=== PATIENT | male | born 1990 | race Caucasian/White ===

== ENCOUNTER 2017-12-13 20:24 | Emergency (ER) | payer SELFPAY ==
[2017-12-13 20:31] VITALS: TEMP 98.1
[2017-12-13] MEDS ORDERED: NS 1,000 ML IV ONE (20:31)
--- NOTE | 2017-12-13 20:39 | EDPHY ---
General - History Smoking Status: Light smoker Narrative: CHIEF COMPLAINT: Seizure HISTORY OF PRESENT ILLNESS: Patient presents by EMS and is seen at time of arrival. Complaint is seizure activity. The patient has no recollection of events. He remembers being at work but does not remember anything after that. He says that he is anxious and a little confused at this time. He knows where he is and what year it is. He knows his spouse is waiting for him. EMS reports that his coworkers described a brief episode of generalized tonic-clonic seizure activity. No loss of bowel or bladder. Does have complaint of mild pain to the tongue. He has no headache. No neck pain or stiffness. No fever or illness. No chest pain or shortness of breath. He has had previous seizures. Reports 1st seizure 2-3 years ago, and has seizures approximately every 2-3 months. Known trigger. He has been evaluated twice in the past. No imaging. No neurology follow-up. No medications. No alcohol abuse. No benzodiazepine use or abuse No other associated complaints or modifying factors. REVIEW OF SYSTEMS: Ten systems reviewed and are negative unless otherwise noted in the HPI PCP: None SPECIALISTS: None PAST MEDICAL HISTORY: Seizures PAST SURGICAL HISTORY: None SOCIAL HISTORY: Daily smoker. Occasional alcohol use. No drug use. Works at a [employer] store. Originally from [place]. FAMILY HISTORY: Noncontributory EXAMINATION General Appearance: Alert, no distress, diaphoretic and anxious. Head: normocephalic, atraumatic Eyes: Pupils equal and round, no conjunctival pallor or injection. EOMs intact..No vertical nystagmus. Or dysconjugate gaze ENT, Mouth: Mucous membranes moist Neck: Normal inspection, supple, non-tender Respiratory: Lungs are clear to auscultation Cardiovascular: Tachycardic rate. Regular rhythm. No murmur. Gastrointestinal: Abdomen is soft and nontender Back: non-tender, no bony abnormalities Neurological: GCS 15. Cranial nerves 2-12 grossly intact. Mild resting tremor. Alert to person, place and time. Disoriented to details of the event. nonfocal, strength is 5/5 in all 4 limbs. There is no pronator drift. Normal [id number]. Skin: Diaphoretic. Grossly intact. No petechiae or purpura. Extremities: Nontender, no pedal edema. Symmetric range of motion Psychiatric: Mood and affect normal DIFFERENTIAL DIAGNOSES: Including but not limited to unprovoked seizure, status epilepticus, provoked seizure, dehydration MDM: 8:30 p.m. Reported seizure activity that was witnessed. This described as generalized tonic-clonic activity. He is postictal but in no acute distress. No evidence of status epilepticus. No evidence of alcohol use or abuse or withdrawal. No evidence of benzodiazepine use or withdrawal. Vital signs within normal limits with mild tachycardia that is improving. He has had 2 previous workups in the past, neither of which included a CT scan of the head. He has never had an MRI of the head. He is not on any medications for seizure prevention. Laboratory studies ordered. CT scan of the head ordered. He is in no acute distress. 9:10 p.m. Patient evaluated. There has been more information provided since my previous HPI. His spouse is at bedside and has told Dr. Alvarez and the RN that the spouse has had only 1 seizure several months ago. Additionally, the patient is now being more forthcoming with his alcohol intake. He says he drinks approximately a handle of liquor every 3 days and he has had less over the past 2 days. He is mildly tremulous. He is in no acute distress. He has exhibited no other seizure activity here. No vomiting. We discussed Ativan and discharged home. 9:25 p.m. Patient re-evaluated. He is discussed with the spouse and he is in agreement with the plan. He will be discharged home stable condition with instructions to contact the on-call primary care physician as provided in the on-call neurologist of provided. He is instructed to not mix Ativan alcohol but also to not to stop drinking cold turkey. He would like to continue his drinking and wean under the supervision of his primary care physician that he will establish with. We discussed outpatient resources. We discussed driving restrictions. We discussed ED precautions. He is comfortable this plan. He is discharged home stable condition SUPERVISION: Patient was evaluated and examined in conjunction with my secondary supervising physician as documented. We have both examined the patient. (Jacky Farooq) Medical Decision Making: PHYSICIAN DOCUMENTATION: The patient was evaluated and managed by the Physician [employer] and myself. I have reviewed the chart and agree with the findings and plan of care as documented. In addition, I examined the patient myself at 2034. History confirmed as the patient had a shaking episode which sounds like a seizure today by EMS. On interview with the patient's he said he had possibly 3 months ago on a flight from [facility] to [facility] but he was released after being evaluated by paramedics at the airport. Physical findings as follows: Anterior tongue abrasion, now alert but has some short-term memory issues. CT imaging discussed and consented. Labs to include CBC and chemistry. Patient is rapidly returning to normal mental status per his . 2147: ambulatory, not ataxic, normal gait. I am the secondary supervising physician. (Fei Alvarez) - Objective Vital Signs: Initial Vital Signs Temperature (C) 98.1 F 12/13/17 20:27 Heart Rate 109 H 12/13/17 20:27 Respiratory Rate 20 12/13/17 20:27 Blood Pressure 145/94 H 12/13/17 20:27 O2 Sat (%) 93 12/13/17 20:27 O2 Delivery Mode Room Air Allergies/Adverse Reactions: Sulfa (Sulfonamide Antibiotics) Allergy (Verified 12/13/17 20:27) Laboratory Results: Laboratory Results 12/13/17 20:40 12/13/17 20:40 Medications Given: Discontinued Medications Sodium Chloride (Ns) 1,000 mls @ 0 mls/hr IV EDNOW ONE; Wide Open PRN Reason: Protocol Stop: 12/13/17 20:32 Last Admin: 12/13/17 20:40 Dose: 1,000 mls Lorazepam (Ativan Injection) 1 mg IVP EDNOW ONE Stop: 12/13/17 21:20 Last Admin: 12/13/17 21:25 Dose: 1 mg Departure - Departure Disposition: Home, Routine, Self-Care Clinical Impression: Seizure Condition: Good Instructions: Abuse of Alcohol (ED), At-Risk Alcohol Use (ED), New-Onset Seizure in Adults (ED), Driving Restrictions (ED) Additional Instructions: NO driving until cleared by followup neurologist. Referrals: Carlos Eduardo Loera MD [Medical Doctor] - 5-7 days, call for appt. Foster Mueller MD [Medical Doctor] - As per Instructions
[2017-12-13 20:50] LABS: PLATELET COUNT 156 10^3/uL (150-400)
[2017-12-13] MEDS ORDERED: LORazepam 2 MG/ML INJ IVP ONE (21:19)
[2017-12-13 21:31] VITALS: BP 128/74; PULSE 87; RESP 21; O2SAT 92
--- NOTE | 2017-12-14 13:08 | ASDISCHSUM ---
Discharge Information Plan Status:Home with No Needs Medically Cleared to Leave: Discharge Date:12/13/2017 09:49 PM CM D/C Disposition:Home, Routine, Self-Care ADT D/C Disposition:Home, Routine, Self-Care Projected Discharge Date:12/13/2017 09:49 PM Transportation at D/C:None or Unknown Discharge Delay Reason: Follow-Up Date:12/13/2017 09:49 PM Discharge Slot: Final Diagnosis: Placement Information Patient Contact Information Contact Name:MARY Relationship: Address: Work Phone: City: [facility] Phone: State/Zip Code: Email: Financial Information Financial Class:Self-Pay Primary Plan Desc:SELF PAY Primary Plan Number: Secondary Plan Desc: Secondary Plan Number: Assessment Information [facility] CM Progress Note CM Note CM Note Notes: Requested to follow up with patient re: getting a PCP and Neurology appt. Spoke with patient ([phone]) and he doesn't remember the entire discharge instructions from the ED so we reviewed them over the phone and he verbally expressed understanding and states he will further review his discharge paperwork with his when he gets home from work. Patient aware that he should not drive until seen by a neurologist. Patient will call the referred neurologist Dr. Loera ([phone]) after speaking to his about his availability to drive him to appt. Spoke with Dr Loera's office to notify them of patient calling and that he'll need to get seen by the end of the week. Spoke with patient about also establishing a PCP. Patient states he doesn't have insurance. We discussed following up with the referred on-call PCP at least once and/or considering getting established with [facility]. Patient says he will look into it. CM available for further assistance if needed. Date Signed: 12/14/2017 01:06 PM Electronically Signed By:Michelle Velazquez RN Intervention Information
== END 2017-12-13 21:49 | disposition home or self-care (01) ==
DX: G40.909 Epilepsy, unspecified, not intractable, without status epilepticus (principal); E86.9 Volume depletion, unspecified; F17.200 Nicotine dependence, unspecified, uncomplicated
CPT/HCPCS: 96374; J2060